=== PATIENT | male | born 1970 | race Caucasian/White ===

== ENCOUNTER 2022-05-30 23:18 | Emergency (ER) | payer OTHER ==
[~2022-05-30] VITALS: Ht 182.9 cm; Wt 74.8 kg
[2022-05-30 23:20] VITALS: BP 145/98
--- NOTE | 2022-05-30 23:32 | NUR ---
JUAN [place], TRIAGED AT [phone], THEN SENT OUT TO [facility]
[2022-05-31] MEDS ORDERED: IBUPROFEN 600 MG TAB PO ONE (00:35)
[2022-05-31] MEDS ORDERED: IBUP-2213 PO (00:45)
[2022-05-31] MEDS ORDERED: CEPH-588 PO (00:45)
[2022-05-31 02:05] VITALS: BP 145/98
--- NOTE | 2022-05-31 02:05 | NUR ---
PT LEFT WITHOUT SIGNING ACI
== END 2022-05-31 02:05 | disposition home or self-care (01) ==
LOC: MED 23:18
DX: L03.115 Cellulitis of right lower limb (principal); Z79.899 Other long term (current) drug therapy
CPT/HCPCS: 73562; 99283

== ENCOUNTER 2023-10-15 08:26 | Emergency (ER) | payer OTHER ==
[~2023-10-15] VITALS: Ht 170.2 cm; Wt 75.9 kg
[~2023-10-15 08:26] MED LIST: CEPH-588 PO; IBUP-2213 PO
[2023-10-15 08:34] VITALS: BP 166/108; PULSE 113; RESP 17; TEMP 97.8; O2SAT 97
[2023-10-15 10:36] LABS: BASOPHILS % (AUTO) 0.8 % (0.0-2.0); EOSINOPHILS % (AUTO) 0.3 % (0.0-4.0); HEMATOCRIT 42.9 % (36-52); HEMOGLOBIN 15.1 g/dL (12.0-18.0); LYMPHOCYTES # (AUTO) 0.5 K/uL (2.0-11.5); LYMPHOCYTES % (AUTO) 10.9 % (20.5-51.1); MEAN CORPUSCULAR HEMOGLOBIN 33 pg (27-31); MEAN CORPUSCULAR HGB CONC 35 g/dL (33-37); MEAN CORPUSCULAR VOLUME 93.1 fL (80-94); MONOCYTES # (AUTO) 0.5 K/uL (0.8-1.0); MONOCYTES % (AUTO) 10.9 % (1.7-9.3); NEUTROPHILS # (AUTO) 3.2 K/uL (1.8-7.7); NEUTROPHILS % (AUTO) 77.1 % (42.2-75.2); PLATELET COUNT (AUTO) 90 K/uL (140-450); RED BLOOD CELL COUNT(AUTO) 4.61 MIL/uL (4.20-6.10); RED CELL DISTRIBUTION WIDTH 13.5 % (11.6-13.7); WHITE BLOOD COUNT (AUTO) 4.2 K/uL (4.8-10.8)
[2023-10-15] MEDS: diazePAM 5 MG TAB PO ONE (10:52)
[2023-10-15] MEDS: NACL 0.9% 2,000 ML IV ONE (10:53)
[2023-10-15 10:54] LABS: ANION GAP 12.6 (8-16); CALCIUM 9.4 mg/dL (8.5-10.1); CARBON DIOXIDE 28.4 mmol/L (21-32)
[2023-10-15 11:02] LABS: ALBUMIN 3.6 g/dL (3.4-5.0); TOTAL BILIRUBIN 1.8 mg/dL (0.0-1.0); TOTAL PROTEIN, SERUM 9.1 g/dL (6.4-8.2)
[2023-10-15] MEDS: NACL 0.9% 1,000 ML IV ONE (12:27)
[2023-10-15 13:44] VITALS: BP 134/85; PULSE 80; RESP 18; TEMP 97.6; O2SAT 95
== END 2023-10-15 13:42 | disposition home or self-care (01) ==
LOC: MED 08:26
DX: F10.239 Alcohol dependence with withdrawal, unspecified (principal); R10.84 Generalized abdominal pain; Z79.899 Other long term (current) drug therapy; Y90.0 Blood alcohol level of less than 20 mg/100 ml
CPT/HCPCS: 36415; 76705; 80048; 80076; 83690; 85025; 96360; 96361; 99284; G0482; J7030; Q0092

== ENCOUNTER 2023-10-27 07:01 | Emergency (ER) | payer OTHER ==
[~2023-10-27] VITALS: Ht 170.2 cm; Wt 68.0 kg
[2023-10-27 07:07] VITALS: BP 156/100; PULSE 102; RESP 18; TEMP 98.3; O2SAT 99
[2023-10-27 07:39] LABS: BASOPHILS % (AUTO) 0.7 % (0.0-2.0); EOSINOPHILS # (AUTO) 0.1 K/uL (0-0.4); EOSINOPHILS % (AUTO) 4.1 % (0.0-4.0); HEMATOCRIT 41.7 % (36-52); HEMOGLOBIN 14.7 g/dL (12.0-18.0); LYMPHOCYTES # (AUTO) 0.4 K/uL (2.0-11.5); MEAN CORPUSCULAR HEMOGLOBIN 33 pg (27-31); MEAN CORPUSCULAR HGB CONC 35 g/dL (33-37); MEAN CORPUSCULAR VOLUME 92.8 fL (80-94); MONOCYTES # (AUTO) 0.3 K/uL (0.8-1.0); MONOCYTES % (AUTO) 8.3 % (1.7-9.3); NEUTROPHILS # (AUTO) 2.5 K/uL (1.8-7.7); NEUTROPHILS % (AUTO) 75.9 % (42.2-75.2); PLATELET COUNT (AUTO) 92 K/uL (140-450); RED BLOOD CELL COUNT(AUTO) 4.49 MIL/uL (4.20-6.10); RED CELL DISTRIBUTION WIDTH 13.5 % (11.6-13.7); WHITE BLOOD COUNT (AUTO) 3.3 K/uL (4.8-10.8)
[2023-10-27] MEDS: diazePAM 5 MG TAB PO ONE ×2 (07:49→10:47)
[2023-10-27] MEDS: NACL 0.9% 1,000 ML IV SCH (07:51)
[2023-10-27 07:55] VITALS: O2SAT 99
[2023-10-27] MEDS: ONDANSETRON 4 MG/2 ML VIAL IVP ONE (07:59)
[2023-10-27 08:18] LABS: ANION GAP 15.1 (8-16); CARBON DIOXIDE 23.8 mmol/L (21-32); CREATININE 0.9 mg/dL (0.6-1.3); POTASSIUM 3.9 mmol/L (3.5-5.1)
[2023-10-27 08:23] LABS: ALANINE AMINOTRANSFERASE 167 U/L (12-78); ALBUMIN 3.5 g/dL (3.4-5.0); ALKALINE PHOSPHATASE 164 U/L (50-136); ASPARTATE AMINOTRANSFERASE 244 U/L (15-37); BILIRUBIN,DIRECT 1.3 mg/dL (0.0-0.3); LIPASE 143 U/L (16-77); TOTAL BILIRUBIN 2.2 mg/dL (0.0-1.0); TOTAL PROTEIN, SERUM 8.8 g/dL (6.4-8.2)
[2023-10-27] MEDS: NACL 0.9% 1,000 ML IV ONE (09:50)
[2023-10-27 10:10] VITALS: O2SAT 99
[2023-10-27] MEDS ORDERED: ONDA-188 PO (10:10)
[2023-10-27 11:41] VITALS: BP 135/91; PULSE 88; RESP 17; TEMP 98.1; O2SAT 99
== END 2023-10-27 11:49 | disposition home or self-care (01) ==
LOC: MED 07:01
DX: R11.2 Nausea with vomiting, unspecified (principal); Z79.2 Long term (current) use of antibiotics; Z79.1 Long term (current) use of non-steroidal anti-inflammatories (NSAID); Z79.899 Other long term (current) drug therapy
CPT/HCPCS: 36415; 80048; 80076; 83690; 84484; 85025; 93005; 96361; 96374; 99284; J2405; J7030

== ENCOUNTER 2023-11-05 12:33 | Emergency (ER) | payer OTHER ==
[~2023-11-05] VITALS: Ht 182.9 cm; Wt 72.6 kg
[~2023-11-05 12:33] MED LIST changes: +ONDA-188 PO
[2023-11-05 12:40] VITALS: BP 148/101; PULSE 113; RESP 14; TEMP 98.1; O2SAT 99
[2023-11-05] MEDS: ONDANSETRON 4 MG/2 ML VIAL IVP ONE (13:28)
[2023-11-05 13:29] LABS: BASOPHILS # (AUTO) 0.1 K/uL (0.00-0.22); BASOPHILS % (AUTO) 1.3 % (0.0-2.0); EOSINOPHILS # (AUTO) 0.1 K/uL (0-0.4); EOSINOPHILS % (AUTO) 1.8 % (0.0-4.0); HEMATOCRIT 41.2 % (36-52); HEMOGLOBIN 14.1 g/dL (12.0-18.0); LYMPHOCYTES # (AUTO) 1.4 K/uL (2.0-11.5); LYMPHOCYTES % (AUTO) 26.7 % (20.5-51.1); MEAN CORPUSCULAR HEMOGLOBIN 32 pg (27-31); MEAN CORPUSCULAR HGB CONC 34 g/dL (33-37); MEAN CORPUSCULAR VOLUME 94.6 fL (80-94); MONOCYTES # (AUTO) 0.8 K/uL (0.8-1.0); MONOCYTES % (AUTO) 14.5 % (1.7-9.3); NEUTROPHILS % (AUTO) 55.7 % (42.2-75.2); PLATELET COUNT (AUTO) 166 K/uL (140-450); RED BLOOD CELL COUNT(AUTO) 4.36 MIL/uL (4.20-6.10); RED CELL DISTRIBUTION WIDTH 13.9 % (11.6-13.7); WHITE BLOOD COUNT (AUTO) 5.3 K/uL (4.8-10.8)
[2023-11-05 13:48] LABS: ANION GAP 13.9 (8-16); CALCIUM 8.8 mg/dL (8.5-10.1); CARBON DIOXIDE 24.6 mmol/L (21-32); CREATININE 0.8 mg/dL (0.6-1.3); POTASSIUM 3.5 mmol/L (3.5-5.1)
[2023-11-05 13:54] LABS: ALANINE AMINOTRANSFERASE 175 U/L (12-78); ALBUMIN 3.1 g/dL (3.4-5.0); ALCOHOL, BLOOD 316 mg/dL (<10); ALKALINE PHOSPHATASE 184 U/L (50-136); ASPARTATE AMINOTRANSFERASE 282 U/L (15-37); BILIRUBIN,DIRECT 0.8 mg/dL (0.0-0.3); LIPASE 112 U/L (16-77); TOTAL BILIRUBIN 1.1 mg/dL (0.0-1.0)
[2023-11-05 13:55] LABS: ACETAMINOPHEN < 0.5 ug/ml (10-30); SALICYLATE < 2.8 mg/dL (2.8-20.0)
[2023-11-05] MEDS: NACL 0.9% 1,000 ML IV ONE (15:10)
[2023-11-05 15:38] LABS: APPEARANCE,URINE CLEAR (CLEAR); BILIRUBIN,URINE NEGATIVE (NEGATIVE); BLOOD, URINE NEGATIVE (NEGATIVE); COLOR,URINE YELLOW (YELLOW); LEUKOCYTE ESTERASE ,URINE NEGATIVE (NEGATIVE); NITRITE, URINE NEGATIVE (NEGATIVE); PROTEIN,URINE NEGATIVE (NEGATIVE); UGLUCOSE NEGATIVE (NEGATIVE)
[2023-11-05 15:55] LABS: AMPHETAMINE, URINE NEGATIVE ng/ml (NEG <=1000); BARBITURATE, URINE NEGATIVE ng/ml (NEG <=200); BENZODIAZEPINE, URINE POSITIVE ng/mL (NEG <=200); CANNABINOID, URINE NEGATIVE ng/mL (NEG <=50); COCAINE, URINE NEGATIVE ng/mL (NEG <=300)
[2023-11-05 15:56] LABS: OPIATE, URINE NEGATIVE ng/mL (NEG <=2000); PHENCYCLIDINE SCREEN,URINE NEGATIVE ng/mL (NEG <=25)
[2023-11-05] MEDS ORDERED: ONDA-188 SL (16:25)
[2023-11-05 17:28] VITALS: BP 111/81; PULSE 81; RESP 16; TEMP 36.61404; O2SAT 98
== END 2023-11-05 17:30 | disposition home or self-care (01) ==
LOC: MED 12:33
DX: T67.5XXA Heat exhaustion, unspecified, initial encounter (principal); F10.129 Alcohol abuse with intoxication, unspecified; R11.10 Vomiting, unspecified; Y90.8 Blood alcohol level of 240 mg/100 ml or more; Z79.899 Other long term (current) drug therapy; X32.XXXA Exposure to sunlight, initial encounter; Y93.89 Activity, other specified; Y92.89 Other specified places as the place of occurrence of the external cause; Y99.8 Other external cause status
CPT/HCPCS: 36415; 71045; 80048; 80076; 80305; 81003; 83690; 84484; 85025; 93005; 96361; 96374; 99285; G0480; G0482; J2405; J7030; Q0092

== ENCOUNTER 2023-11-06 19:09 | Emergency (ER) | payer OTHER ==
[~2023-11-06] VITALS: Ht 170.2 cm; Wt 68.0 kg
[~2023-11-06 19:09] MED LIST changes: +ONDA-188 SL
[2023-11-06 19:13] VITALS: BP 127/93; PULSE 113; RESP 16; TEMP 98.5; O2SAT 94
[2023-11-06 20:30] VITALS: TEMP 98.5
[2023-11-06] MEDS: NACL 0.9% 1,000 ML IV ONE (20:47)
[2023-11-06] MEDS ORDERED: FOLIC ACID 5 MG/ML SYR ONE ×2 (21:00)
[2023-11-06] MEDS ORDERED: THIAMINE 200 MG/2 ML VIAL ONE (21:00)
[2023-11-06] MEDS ORDERED: MULTIVITAMIN-12 10 ML VIAL IV ONE (21:01)
[2023-11-06 21:09] LABS: EOSINOPHILS # (AUTO) 0.1 K/uL (0-0.4); EOSINOPHILS % (AUTO) 2.9 % (0.0-4.0); HEMATOCRIT 38.2 % (36-52); HEMOGLOBIN 13.1 g/dL (12.0-18.0); LYMPHOCYTES # (AUTO) 0.9 K/uL (2.0-11.5); MEAN CORPUSCULAR HEMOGLOBIN 33 pg (27-31); MEAN CORPUSCULAR HGB CONC 34 g/dL (33-37); MEAN CORPUSCULAR VOLUME 95.2 fL (80-94); MONOCYTES # (AUTO) 0.6 K/uL (0.8-1.0); MONOCYTES % (AUTO) 15.7 % (1.7-9.3); NEUTROPHILS # (AUTO) 2.2 K/uL (1.8-7.7); NEUTROPHILS % (AUTO) 56.4 % (42.2-75.2); PLATELET COUNT (AUTO) 141 K/uL (140-450); RED BLOOD CELL COUNT(AUTO) 4.02 MIL/uL (4.20-6.10); RED CELL DISTRIBUTION WIDTH 13.9 % (11.6-13.7); WHITE BLOOD COUNT (AUTO) 3.9 K/uL (4.8-10.8)
[2023-11-06] MEDS: NACL 0.9% IV ONE (21:11)
[2023-11-06] MEDS: THIAMINE IV ONE (21:11)
[2023-11-06] MEDS: MULTIVITAMIN IV ONE (21:11)
[2023-11-06] MEDS: FOLIC ACID IV ONE (21:11)
[2023-11-06 21:17] LABS: ANION GAP 14.2 (8-16); CALCIUM 8.3 mg/dL (8.5-10.1); CARBON DIOXIDE 25.6 mmol/L (21-32); CREATININE 0.8 mg/dL (0.6-1.3); POTASSIUM 3.8 mmol/L (3.5-5.1)
[2023-11-07] MEDS ORDERED: ONDANSETRON 4 MG/2 ML VIAL ONE (03:35)
[2023-11-07] MEDS: ONDANSETRON 4 MG/2 ML VIAL IVP ONE (03:38)
[2023-11-07 06:08] VITALS: BP 119/78; PULSE 89; RESP 14; O2SAT 98
[2023-11-07] MEDS ORDERED: ONDANSETRON 4 MG ODT ONE (06:15)
[2023-11-07] MEDS ORDERED: ONDA-188 SL (06:18)
[2023-11-07] MEDS: ONDANSETRON 4 MG ODT PO ONE (06:25)
== END 2023-11-07 06:32 | disposition home or self-care (01) ==
LOC: MED 19:09
DX: F10.129 Alcohol abuse with intoxication, unspecified (principal); Z79.899 Other long term (current) drug therapy; Y90.7 Blood alcohol level of 200-239 mg/100 ml
CPT/HCPCS: 36415; 80048; 85025; 96365; 96366; 96375; 99285; A9153; G0482; J2405; J3411; J3490; J7030; Q0162

== ENCOUNTER 2023-11-08 06:29 | Emergency (ER) | payer OTHER ==
[~2023-11-08] VITALS: Ht 167.6 cm; Wt 72.6 kg
[2023-11-08 06:36] VITALS: BP 157/95; PULSE 119; RESP 14; TEMP 97.5; O2SAT 99
[2023-11-08] MEDS: DIAZEPAM PFS 10 MG/2 ML SYR IVP ONE (07:13)
[2023-11-08] MEDS: NACL 0.9% 1,000 ML IV ONE (07:13)
[2023-11-08 07:33] VITALS: BP 168/117; PULSE 96; RESP 17; TEMP 97.5
[2023-11-08 07:40] LABS: BASOPHILS # (AUTO) 0.1 K/uL (0.00-0.22); BASOPHILS % (AUTO) 0.9 % (0.0-2.0); EOSINOPHILS # (AUTO) 0.1 K/uL (0-0.4); EOSINOPHILS % (AUTO) 2.1 % (0.0-4.0); HEMOGLOBIN 14.4 g/dL (12.0-18.0); LYMPHOCYTES # (AUTO) 0.8 K/uL (2.0-11.5); LYMPHOCYTES % (AUTO) 13.5 % (20.5-51.1); MEAN CORPUSCULAR HEMOGLOBIN 33 pg (27-31); MEAN CORPUSCULAR HGB CONC 35 g/dL (33-37); MEAN CORPUSCULAR VOLUME 93.3 fL (80-94); MONOCYTES # (AUTO) 0.6 K/uL (0.8-1.0); MONOCYTES % (AUTO) 11.1 % (1.7-9.3); NEUTROPHILS % (AUTO) 72.4 % (42.2-75.2); PLATELET COUNT (AUTO) 136 K/uL (140-450); RED CELL DISTRIBUTION WIDTH 13.3 % (11.6-13.7); WHITE BLOOD COUNT (AUTO) 5.6 K/uL (4.8-10.8)
[2023-11-08 08:02] LABS: ANION GAP 17.1 (8-16); CALCIUM 8.8 mg/dL (8.5-10.1); CARBON DIOXIDE 22.2 mmol/L (21-32); CREATININE 0.7 mg/dL (0.6-1.3); POTASSIUM 3.3 mmol/L (3.5-5.1)
[2023-11-08 08:06] LABS: ALBUMIN 3.4 g/dL (3.4-5.0); BILIRUBIN,DIRECT 1.1 mg/dL (0.0-0.3); TOTAL BILIRUBIN 1.7 mg/dL (0.0-1.0); TOTAL PROTEIN, SERUM 8.6 g/dL (6.4-8.2)
[2023-11-08 08:24] VITALS: O2SAT 97
[2023-11-08] MEDS: LORazepam 1 MG TAB PO ONE (09:12)
== END 2023-11-08 09:23 | disposition home or self-care (01) ==
LOC: MED 06:29
DX: F15.10 Other stimulant abuse, uncomplicated (principal); F10.10 Alcohol abuse, uncomplicated; R00.0 Tachycardia, unspecified; Z79.899 Other long term (current) drug therapy; Y90.1 Blood alcohol level of 20-39 mg/100 ml
CPT/HCPCS: 36415; 80048; 80076; 82550; 83690; 85025; 96361; 96374; 99283; G0482; J3360; J7030

== ENCOUNTER 2023-11-11 10:37 | Emergency (ER) | payer OTHER ==
[~2023-11-11] VITALS: Ht 170.2 cm; Wt 76.7 kg
[2023-11-11 10:45] VITALS: BP 167/104; PULSE 117; RESP 19; TEMP 98.1; O2SAT 97
[2023-11-11] MEDS: LORazepam 1 MG TAB PO ONE (11:29)
[2023-11-11] MEDS: CLONIDINE HYDROCHLORIDE 0.1 MG TAB PO ONE (11:30)
[2023-11-11 13:05] VITALS: BP 154/95; PULSE 89; RESP 19; TEMP 98.1; O2SAT 98
== END 2023-11-11 13:05 | disposition home or self-care (01) ==
LOC: MED 10:37
DX: I16.0 Hypertensive urgency (principal); F15.10 Other stimulant abuse, uncomplicated; F31.9 Bipolar disorder, unspecified; Z79.1 Long term (current) use of non-steroidal anti-inflammatories (NSAID); Z79.899 Other long term (current) drug therapy
CPT/HCPCS: 99283